=== PATIENT | male | born 1980 | race African-American/Black ===

== ENCOUNTER 2023-10-10 03:27 | Emergency (ER) | payer SELFPAY ==
[2023-10-10] MEDS ORDERED: Lidocaine 1% PF 5 ML VIAL ONE (03:38)
[2023-10-10] MEDS ORDERED: Bacitracin 1 PK ONE (03:59)
== END 2023-10-10 04:23 | disposition home or self-care (01) ==
LOC: BURERS 03:27
DX: S61.212A Laceration without foreign body of right middle finger without damage to nail, initial encounter (principal); R03.0 Elevated blood-pressure reading, without diagnosis of hypertension; F17.200 Nicotine dependence, unspecified, uncomplicated; W25.XXXA Contact with sharp glass, initial encounter
CPT/HCPCS: 12001; 99282